=== PATIENT | female | born 1955 | race Caucasian/White ===

== ENCOUNTER 2016-12-24 16:37 | Observation (INO) ==
[2016-12-24] MEDS ORDERED: NITROGLYCERIN SL PRN (17:04)
[2016-12-24] MEDS ORDERED: TYLENOL PO PRN (17:04)
[2016-12-24] MEDS ORDERED: ZOFRAN IV PRN (17:04)
[2016-12-24] MEDS ORDERED: SALINE LOCK IV FLUID XX ONE (17:04)
[2016-12-24] MEDS ORDERED: MORPHINE IV PRN (17:12)
--- NOTE | 2016-12-24 18:05 | Diag Imaging Result Doc PS360 ---
EXAM: CHEST-2 VIEWS HISTORY: Chest Pain TECHNIQUE: PA and lateral chest COMMENT: There is no evidence of acute cardiac or pulmonary disease. The appearance of the chest is consistent with COPD. Compared to 07/26/2016 there is been no significant change. IMPRESSION: COPD. Electronically signed by Ervin Gibbs 12/24/2016 6:02 PM
[2016-12-24 18:47] LABS: MANUAL DIFF NEEDED? NO
[2016-12-24 18:49] LABS: BASO% 0.6 % (0.0-0.8); EOS# 0.48 X1000 (0.0-0.7); EOS% 7.5 % (0.0-10.0); HEMATOCRIT 38.4 % (37.0-47.0); HEMOGLOBIN 13.1 g/dL (12.0-16.0); LYMPH# 1.95 X1000 (1.2-3.4); LYMPH% 30.3 % (20.5-51.1); MCH 32.7 PG (27-31); MCHC 34.1 g/dL (33-37); MCV 95.8 FL (81-99); MONO# 0.46 X1000 (0.11-0.59); MONO% 7.1 % (1.7-9.3); MPV 11.4 FL (7.4-10.4); NEUT% 54.5 % (42.2-75.2); PLT 239 X1000 (130-400); RBC 4.01 XMIL (4.2-5.4)
[2016-12-24 18:58] LABS: INR 0.99; PROTIME 10.4 Seconds (9.2-11.7); PTT 25.4 Seconds (22.0-36.0)
[2016-12-24 19:18] LABS: AGAP 14; ALBUMIN 4.1 g/dL (3.5-5.0); ALKALINE PHOSPHATASE 49 U/L (32-104); BUN 9 mg/dL (8-22); CALCIUM 8.6 mg/dL (8.8-10.2); CHLORIDE 109 mmol/L (98-107); COSMO 287; GOT 12 U/L (10-30); GPT 8 U/L (10-36); POTASSIUM 3.9 mmol/L (3.5-5.1); SODIUM 145 mmol/L (136-145); TCO2 22 mmol/L (25-35); TOTAL BILIRUBIN 0.59 mg/dL (0.20-1.00)
[2016-12-24] MEDS: PROTONIX IV SCH (21:00)
[2016-12-24] MEDS ORDERED: SODIUM CHLORIDE 0.9% INJ SCH (21:00)
--- NOTE | 2016-12-25 06:24 | HISTORY AND PHYSICAL ---
CHIEF COMPLAINT: Chest pain. HISTORY OF PRESENT ILLNESS: The patient is a 61-year-old, white female, who comes in complaining of ongoing chest pains. She says that she has had these over the last 3 days and are occurring with exertion. They have been in the anterior inferior chest diffusely on the right and left and middle of the chest occurring recently at a baby shower and also, she notes after the baby shower, she went home and walked with her for exercise and she says symptoms became severe and were accompanied by shortness of breath. She says they promptly resolved on resting. She had similar pains this morning when she was simply getting up pulling chicken off the bone this morning at her home and they got better when she sat down. She has had nuclear stress test done on 12/14/2016, which was normal with a heart rate of 176, maximum workload of 8.7 metastases; 110% of maximum predicted heart rate for the patient's age was noted. The patient also had MRI of the T-spine done which shows remote T8 compression fracture. No acute fractures. Moderate multilevel degenerative disk disease in the thoracic area. Total body bone scan showed a compression fracture of T9 thought to be subacute back in July 2016. The patient also has had osteoporosis, osteopenia diagnosed 08/23/2016 per DEXA scan. Chest x-ray 07/26/2016 revealed the age-indeterminate thoracic spine compression fracture at the mid lower thoracic spine, otherwise negative. MEDICATIONS PRIOR TO ADMISSION: Fosamax, budesonide EC 3 mg 3 p.o. daily, Topamax 100 mg 3 p.o. daily, Imitrex 100 mg p.o. p.r.n., headache, Eylea injection to the eye on the left q.4-[address] Forde[facility] [place]. ALLERGIES: NKDA. PAST MEDICAL HISTORY: 1. IBS. 2. Migraine headaches. 3. History of central retinal vein occlusion, April 2015. PAST SURGICAL HISTORY: Left knee arthroscopy in 2005. IMMUNIZATIONS: Zostavax given March 2016. Influenza given March 2016. FAMILY HISTORY: Notable for hypertension in her mother. Stroke and MIs have not been present in the family. Father with lymphoma. Diabetes mellitus not present in the family. Mother and grandmother with breast cancer. SOCIAL HISTORY: The patient lives in [place]. She is . She has 3 sons. 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 She is a lifelong nonsmoker. Does not drink alcohol. No drug use. REVIEW OF SYSTEMS: Negative except as above. PHYSICAL EXAMINATION: VITAL SIGNS: See chart. GENERAL: Thin, well-developed, well-nourished white female in no acute distress currently without chest pains. SKIN: No rashes. HEENT: NCAT. PERRL. EOMI. Sclerae clear. OP without redness. Tongue in the midline. NECK: No LA, TMG, JVD, bruits. CV: RRR without murmur. LUNGS: CTA. BACK: No point tenderness. ABDOMEN: Soft, NT, ND. No mass. No HSM. BREASTS/PELVIC/RECTAL: Deferred. She is followed by Dr. Le. EXTREMITIES: No CCE. PP 2+ NEUROLOGIC: CN 2 through 12 intact. NF. ASSESSMENT: 1. Chest pains. 2. History of central retinal vein occlusion. 3. Migraine headaches. 4. Irritable bowel syndrome. 5. Osteoporosis. 6. History of remote early 2017 thoracic compression fracture. PLAN: At this time, due to the ongoing symptoms with exertion, we will admit the patient to telemetry bed. Monitor serial cardiac enzymes, troponins. Check repeat chest x-ray. Check labs to include CBC, CMP, PT, PTT. We will start the patient on aspirin, sublingual nitroglycerin as needed for chest pain. Keep her NPO after midnight. We will ask Cardiology to see the patient. Notably, she has negative and recent stress testing in the past couple of weeks. cc: Ezequiel Mendez MD
[2016-12-25] MEDS ORDERED: PRILOSEC PO SCH (07:00)
--- NOTE | 2016-12-25 07:37 | EKG Report ---
Test Performed on : 12/24/2016 5:23:12 PM Test Reason : cp Blood Pressure : / mmHG Vent. Rate : 055 BPM Atrial Rate : 055 BPM P-R Int : 142 ms QRS Dur : 088 ms QT Int : 468 ms P-R-T Axes : 023 018 047 degrees QTc Int : 447 ms Sinus bradycardia. Otherwise normal ECG No previous ECGs available Confirmed by Lisbeth Caruso MD ([id number]) on 12/25/2016 12:27:30 PM
[2016-12-25] MEDS ORDERED: HEPARIN 1000 UNITS/NS 2,000 UNIT/1,000 ML IV.SOLN ONE (14:19)
[2016-12-25] MEDS ORDERED: VERSED ONE (14:30)
[2016-12-25] MEDS ORDERED: MORPHINE ONE (14:31)
[2016-12-25] MEDS ORDERED: ANESTHESIA PB SET 88 IN 5742 ONE (14:47)
[2016-12-25] MEDS ORDERED: NS 1,000 ML ONE (14:47)
[2016-12-25] MEDS ORDERED: MAALOX PLUS LIQUID PO PRN (17:08)
[2016-12-25] MEDS ORDERED: NS 1,000 ML IV SCH (18:00)
[2016-12-25] MEDS: ASPIRIN PO SCH (19:15)
[2016-12-25] MEDS: PROTONIX IV SCH (21:02)
[2016-12-25] MEDS: RANEXA PO SCH (21:03)
--- NOTE | 2016-12-25 21:58 | PROGRESS NOTE ---
DATE: 12/25/2016 SUBJECTIVE: Patient overall doing well. She has remained NPO. No significant chest pain. OBJECTIVE: Vital signs: Afebrile. Vital signs stable. Cardiovascular: Regular rhythm and rate. Lungs: Computed tomography angiography. Extremities: No calf tenderness, cords or edema. X-RAY: Chest x-ray normal. EKG; normal sinus rhythm without acute ST changes. LABORATORY: Cardiac enzymes, troponin levels good and normal. LDL 124. PT PTT, CMP, CBC normal. ASSESSMENT: 1. Chest pain. 2. History of central retinal vein occlusion. Remote. 3. Migraine headaches. 4. Irritable bowel syndrome. 5. Osteoporosis. 6. History of remote thoracic compression fracture. PLAN: Cardiology is seeing the patient and plans further testing to include arteriogram and echocardiogram. I will follow in regard to their findings. cc: Ezequiel Mendez MD
--- NOTE | 2016-12-25 23:10 | CONSULTATION ---
DATE OF CONSULTATION: 12/25/2016 IMPRESSION: 1. Persistently recurrent chest discomfort with some features suspicious for angina. 2. Recent stress myocardial perfusion study reported negative for evidence of inducible myocardial ischemia. 3. Migraine headaches. 4. Inflammatory bowel syndrome. 5. History of central retinal vein occlusion. 1. History of T8 compression fracture. 2. Remote history of cigarette use. RECOMMENDATIONS: 1. Given the persistently recurrent nature of her chest discomfort with some features suspicious for possible underlying myocardial ischemia, consideration was given to pursuit of coronary angiography for definitive evaluation. The rationale for this approach was discussed at length with the patient and her and she wished to proceed for definitive exclusion of possible underlying coronary disease. Potential hazards of cardiac catheterization/coronary angiography were reviewed as well. 2. Consider small vessel ischemia as another possibility of coronary geography negative. We also considered the possibility of upper gastrointestinal/esophageal etiology for chest symptoms. HISTORY: This is a 61-year-old white female with past history of migraine headaches, inflammatory bowel syndrome, previous cigarette use who was admitted for further evaluation of her recurrent chest pain. She relates that for the past month she has been having chest pressure that seems to occur more often when she is standing. She notes that she could sit down and rest and discomfort would go away. She recently underwent stress myocardial perfusion study which was reportedly negative. However, she has continued to have chest pressure typically with standing and relieved with sitting down and resting. She recently had chest pressure when she went for a walk with her . She reports that she got very uncomfortable with her chest discomfort and started getting some diaphoresis by the time she got back to her house. She had walked perhaps 30 minutes. She came to the emergency room late yesterday afternoon for evaluation and was admitted. She denied any further chest discomfort. Cardiac enzymes have been negative. She notes no relationship of her chest discomfort to posture other than it tends more often to occur with standing. Discomfort is not related to deep breath nor diet. PAST MEDICAL HISTORY: 1. Inflammatory bowel disorder. 2. Migraine headaches. 3. Central retinal vein occlusion. 4. T8 compression fracture. 5. She has no known drug allergies. PAST SURGICAL HISTORY: Includes left knee arthroscopic procedure. MEDICATIONS: Prior to admission as listed. SOCIAL HISTORY: She is . 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 She has history of previous cigarette use, but quit several years ago. She does not use alcohol. FAMILY HISTORY: Negative for premature coronary disease. Positive for breast cancer. REVIEW OF SYSTEMS: Pulmonary: Noncontributory beyond history of present illness. Gastrointestinal: Noncontributory beyond history present illness. Constitutional: Negative/noncontributory beyond history of present illness. Remainder of review of systems negative/noncontributory beyond history present illness with 14 total systems reviewed. PHYSICAL EXAMINATION: General: This is a pleasant, middle-aged female in no distress. Vital Signs: As recorded are stable. HEENT: Extraocular movements intact. Mucous membranes moist. Neck: Supple without jugular venous distention. There are no carotid bruits. Chest: Clear to auscultation. Cardiac: Reveals a regular rate and rhythm without appreciable murmur or gallop. Abdomen: Soft, nontender. Bowel sounds normal. Extremities: Without edema. Neurologic: Reveals her to be alert, fully oriented. Speech is fluent. Moves all 4 extremities equally well. Skin: Warm and dry. Psychiatric: Reveals mood to be appropriate. DIAGNOSTICS: ECG demonstrates sinus bradycardia, but is otherwise within normal limits. cc: MD Ezequiel Townsend MD
--- NOTE | 2016-12-26 03:46 | CARDIAC CATH REPORT ---
PROCEDURE NAME: - PROCEDURE PERFORMED: Left heart catheterization with selective coronary angiography. INDICATIONS: Recurrent chest discomfort suspicious for angina. Symptoms of accelerated recently suggesting possible unstable angina. Previous noninvasive studies negative. ENTRY SITE: Right femoral artery. CATHETERS USED: A 5-Uzbek JL4 and 3DRC. DESCRIPTION OF PROCEDURE: After intravenous sedation with Versed and morphine, local anesthesia with lidocaine was applied over right femoral artery. Arterial access was established with placement of a 5-Uzbek sheath in the right femoral artery using a modified Seldinger technique. Selective coronary angiography was performed. Left heart catheterization was subsequently performed. Upon completion of procedure, arterial sheath was removed from the right femoral artery and hemostasis facilitated with manual pressure. The patient tolerated the procedure without apparent complications. FINDINGS: Hemodynamics: Aortic pressure 145/73, left ventricular pressure 127 over EDP of 13. Comments on hemodynamics: There is no significant gradient across the aortic valve demonstrated on pullback from the left ventricle. Angiography: 1. Left ventriculogram not performed. 2. Left main coronary artery. The left main coronary artery is angiographically normal. 3. Left anterior descending coronary. The left anterior descending coronary artery and its branches are angiographically normal. 4. Left circumflex coronary artery. The left circumflex coronary artery and its branches are angiographically normal. 5. Left circumflex coronary artery. The left circumflex coronary artery and its branches are angiographically normal. 6. Right coronary artery. The dominant right coronary artery and its branches are angiographically normal. CONCLUSIONS: 1. Normal left ventricular filling pressure. 2. Right-dominant coronary anatomy with coronary arteries appearing angiographically normal. RECOMMENDATIONS: 1. Consider alternative etiologies for patient's chest discomfort. 2. Also, consider the possibility of microvascular angina, although patient is no longer smoking, making this less likely. Consider a trial of calcium channel antagonist. cc: MD Ezequiel Townsend MD
[2016-12-26 05:42] LABS: MAGNESIUM 2.3 mg/dL (1.5-2.7)
[2016-12-26] MEDS: ASPIRIN PO SCH (09:53)
[2016-12-26] MEDS: RANEXA PO SCH (09:53)
--- NOTE | 2016-12-26 11:48 | PROGRESS NOTE ---
DATE: 12/26/2016 SUBJECTIVE: Patient without any further chest pain. She underwent arteriogram yesterday which failed to show any significant coronary artery disease. She has undergone a trial of Ranexa overnight in case she has small vessel disease. OBJECTIVE: Vital Signs: Afebrile. Vital signs are stable. CV: RRR without murmur. Lungs: CTA. Extremities: No edema. Diagnostic Data: Echocardiogram results pending. ASSESSMENT: 1. Chest pain, likely noncardiac. 2. Remote history of central retinal vein occlusion. 3. Migraine headaches. 4. Irritable bowel syndrome. 5. Osteoporosis. 6. Remote thoracic compression fracture. PLAN: At this time, continue Ranexa per Dr. Reyes. We will follow the patient and see how she does this morning, and discuss with Dr. Reyes and likely discharge her later in the day. cc: Ezequiel Mendez MD
[2016-12-26 12:28] VITALS: BP 123/71
--- NOTE | 2016-12-26 13:00 | PROGRESS NOTE ---
DATE: 12/26/2016 SUBJECTIVE: Patient continues without chest discomfort or dyspnea. OBJECTIVE: Vital signs: Blood pressure 129/72, heart rate 68 and regular, oxygen saturation 98% on room air. Neck: There is no significant jugular venous distention. Chest: Clear to auscultation. Cardiac Exam: Reveals a regular rate and rhythm without appreciable murmur or gallop. There is no evidence of peripheral edema. IMPRESSIONS: 1. Recurrent chest discomfort suspicious for angina. However, coronary angiography demonstrated normal coronary arteries. Consider the possibility of microvascular angina. 2. Migraine headaches. 3. Inflammatory bowel syndrome. 4. History of central retinal vein occlusion. RECOMMENDATIONS: Consideration given to use of calcium channel antagonist. However, patient's blood pressure might not tolerated this and it was elected to start her on Ranexa on a trial basis. Will start 500 mg twice daily and increased to 1000 mg twice daily in 1 week. This was discussed with the patient. She was instructed to come by our office for some samples to utilize on a trial basis. Will follow up in 1 month thereafter to reassess. cc: MD Ezequiel Townsend MD
--- NOTE | 2016-12-26 21:22 | ECHO REPORT ---
ORDER DATE: 12/25/2016 INDICATION: Chest pain. M-MODE MEASUREMENTS: Right ventricle: 2.9 cm. Left ventricle end diastole: 4.0 cm. Left ventricle end systole: 2.4 cm. Posterior wall: 0.9 cm. Interventricular septum: 0.9 cm. Left atrium: 3.0 cm. Aortic root: 2.8 cm. SUMMARY OF 2-DIMENSIONAL IMAGIN. Left ventricular function is normal with an ejection fraction of 65%-70%. No wall motion abnormality is noted. 2. The right ventricle appears to be normal. 3. The aortic valve shows a mild degree of sclerosis of the cusp. Color flow mapping is unremarkable. 4. The mitral valve looks normal. Color flow mapping is unremarkable. 5. The tricuspid valve looks normal. Color flow mapping indicates a mild degree of regurgitation. 6. The inferior vena cava is not dilated. 7. The pulmonary pressure is estimated at 30 mmHg. 8. Pulse wave Doppler of mitral inflow shows mild reversal of the E and the A wave. 9. Tissue Doppler of septal and lateral mitral annulus averages 8 cm. 10.There is no diastolic dysfunction. 11.The pulmonic valve looks normal. Color flow mapping is unremarkable. 12.There is no pericardial effusion and no sign of thrombus. 13.The atria appear to be unremarkable. Clinical correlation is recommended. cc: MD Leslye Dickerson PA Stephen W. Harbin, MD
--- NOTE | 2016-12-27 06:23 | EKG Report ---
Test Performed on : 12/25/2016 5:16:32 PM Test Reason : POST CATH Blood Pressure : / mmHG Vent. Rate : 063 BPM Atrial Rate : 063 BPM P-R Int : 148 ms QRS Dur : 082 ms QT Int : 444 ms P-R-T Axes : 066 063 056 degrees QTc Int : 454 ms Normal sinus rhythm. Normal ECG When compared with ECG of 24-DEC-2016 17:23, No significant change was found Confirmed by Lisbeth Caruso MD ([id number]) on 12/27/2016 12:50:23 PM
== END 2016-12-26 15:15 | disposition home or self-care (01) ==
LOC: DIRADM → 3N 16:37 → 3S 12-25 16:26
PROVIDERS: ADMIT Family Medicine; ATTEND Family Medicine